=== PATIENT | male | born 1930 | race Caucasian/White ===

== ENCOUNTER 2017-04-13 20:09 | Inpatient (IN) | payer MEDICAID, MEDICARE, OTHER ==
[~2017-04-13] VITALS: Ht 180.3 cm; Wt 86.2 kg
[~2017-04-13 20:09] MED LIST: UNOBMED
[2017-04-13 20:25] LABS: BASOPHILS % (AUTO) 1.8 % (0.0-2.0); LYMPHOCYTES % (AUTO) 18.6 % (20.0-45.0); MEAN CORPUSCULAR HEMOGLOBIN 30.1 PG (27.0-31.0); MEAN CORPUSCULAR HGB CONC 31.8 G/DL (32.0-36.0); MEAN CORPUSCULAR VOLUME 95 FL (80-99); MEAN PLATELET VOLUME 5.8 FL (6.5-10.1); MONOCYTES % (AUTO) 8.1 % (1.0-10.0); NEUTROPHILS % (AUTO) 70.6 % (45.0-75.0); PLATELET COUNT 179 K/UL (150-450); RED BLOOD COUNT 4.65 M/UL (4.70-6.10); RED CELL DISTRIBUTION WIDTH 12.8 % (11.6-14.8); WHITE BLOOD COUNT 3.6 K/UL (4.8-10.8)
[2017-04-13 20:37] LABS: ANION GAP 21 mmol/L (5-15); CALCIUM 8.9 MG/DL (8.5-10.1); CARBON DIOXIDE 18 MMOL/L (21-32); CHLORIDE 100 MMOL/L (98-107); CREATININE 1.5 MG/DL (0.55-1.30); SODIUM 139 MMOL/L (136-145)
[2017-04-13 20:42] LABS: ALANINE AMINOTRANSFERASE 26 U/L (12-78); ALBUMIN/GLOBULIN RATIO 0.8 (1.0-2.7); ASPARTATE AMINO TRANSFERASE 34 U/L (15-37); TOTAL PROTEIN 8.3 G/DL (6.4-8.2)
[2017-04-13 21:04] LABS: APPEARANCE,URINE CLEAR; KETONES,URINE NEGATIVE (NEGATIVE); LEUKOCYTE ESTERASE ,URINE NEGATIVE (NEGATIVE); NITRITE,URINE NEGATIVE (NEGATIVE); PH,URINE 5 (4.5-8.0); PROTEIN,URINE 2+ (NEGATIVE); UROBILINOGEN,URINE NORMAL MG/DL (0.0-1.0)
[2017-04-13 21:19] LABS: AMORPHOUS SEDIMENT,UR FEW /LPF; BACTERIA,URINE OCCASIONAL /HPF; WBC,URINE 0-2 /HPF (0 - 0)
[2017-04-13] MEDS ORDERED: Phenytoin 1,000 MG in NS 275 ML IVPB ONE (21:30)
[2017-04-13] MEDS ORDERED: Phenytoin 250mg/5ml vial ONE (22:01)
[2017-04-13] MEDS ORDERED: LORazepam Inj 2mg/ml 1ml IV ONE (22:15)
[2017-04-13 23:19] VITALS: BP 107/61
[2017-04-14] VITALS (7 sets, daily range): BP systolic 118–142; BP diastolic 71–88
--- NOTE | 2017-04-14 00:31 | Emergency Room Report ---
History of Present Illness General Chief Complaint: Seizure Source: Patient, EMS Present Illness HPI Patient is 87-year-old male who presented after increased seizure activity. Patient reportedly had prior history of seizure disorder. He was given Versed 5 mg IV by EMS with resolution of his seizures. Patient was noted to have 5 seizures [id number] while at home. The patient had been reportedly taking seizure medications at home however this is unknown. History is limited by patient's mental status Allergies: Coded Allergies: No Known Allergies (Unverified , 04/13/17) Patient History Past Medical History: seizures Past Surgical History: unable to obtain Reviewed Nursing Documentation: PMH: Agreed, PSxH: Agreed Nursing Documentation-PMH Hx Seizures: Yes Review of Systems All Other Systems: limited - y mental status Physical Exam Vital Signs Date Time Temp Pulse Resp B/P (MAP) Pulse Ox O2 Delivery O2 Flow Rate FiO2 04/13/17 20:00 98.2 104 16 106/53 98 Non-Rebreather 15.0 Sp02 EP Interpretation: reviewed, normal General Appearance: moderate distress, lethargic Head: atraumatic ENT: normal ENT inspection, other - gag reflex present Neck: normal inspection, supple, no meningismus, no bony tend Respiratory: normal inspection, lungs clear, normal breath sounds, no respiratory distress, no retraction, no wheezing Cardiovascular #1: no edema, tachycardia Gastrointestinal: normal inspection, non tender, soft, no guarding, no hernia Genitourinary: no CVA tenderness Musculoskeletal: normal inspection, back normal, normal range of motion Neurologic: normal inspection, responsive, motor weakness - generalized Skin: normal inspection, normal color, no rash Medical Decision Making Diagnostic Impression: Primary Impression: Epileptic seizure, generalized Additional Impressions: Subtherapeutic phenytoin level Tachycardia CVA (cerebrovascular accident) DNR (do not resuscitate) ER Course Patient presented for seizure. Differential diagnosis included subtherapeutic anticonvulsant level, status epilepticus, CVA, cysticercosis, electrolyte abnormality, mass lesion, or intracranial hemorrhage.Because of complexity of patient's case laboratory testing and imaging studies were ordered. The patient started on IV fluids. Patient was noted to have subtherapeutic Dilantin level. The Dilantin was ordered however patient had a seizure prior to receiving his medication and he was given Ativan 2 mg IV. The patient had subsequent resolution of seizure and was started on Dilantin. CT the head read by radiology showed age-indeterminate CVA. Per the patient's prior paperwork he is DO NOT RESUSCITATE, DO NOT INTUBATE. The patient was discussed with Dr. Pacheco for Dr. Lr who covers Dr. Mayifeld's patients. Labs Test 04/13/17 20:05 04/13/17 20:45 White Blood Count 3.6 K/UL (4.8-10.8) Red Blood Count 4.65 M/UL (4.70-6.10) Hemoglobin 14.0 G/DL (14.2-18.0) Hematocrit 44.0 % (42.0-52.0) Mean Corpuscular Volume 95 FL (80-99) Mean Corpuscular Hemoglobin 30.1 PG (27.0-31.0) Mean Corpuscular Hemoglobin Concent 31.8 G/DL (32.0-36.0) Red Cell Distribution Width 12.8 % (11.6-14.8) Platelet Count 179 K/UL (150-450) Mean Platelet Volume 5.8 FL (6.5-10.1) Neutrophils (%) (Auto) 70.6 % (45.0-75.0) Lymphocytes (%) (Auto) 18.6 % (20.0-45.0) Monocytes (%) (Auto) 8.1 % (1.0-10.0) Eosinophils (%) (Auto) 1.0 % (0.0-3.0) Basophils (%) (Auto) 1.8 % (0.0-2.0) Sodium Level 139 MMOL/L (136-145) Potassium Level 4.0 MMOL/L (3.5-5.1) Chloride Level 100 MMOL/L (98-107) Carbon Dioxide Level 18 MMOL/L (21-32) Anion Gap 21 mmol/L (5-15) Blood Urea Nitrogen 21 mg/dL (7-18) Creatinine 1.5 MG/DL (0.55-1.30) Estimat Glomerular Filtration Rate mL/min (>60) Glucose Level 171 MG/DL (74-106) Calcium Level 8.9 MG/DL (8.5-10.1) Total Bilirubin 0.3 MG/DL (0.2-1.0) Aspartate Amino Transf (AST/SGOT) 34 U/L (15-37) Alanine Aminotransferase (ALT/SGPT) 26 U/L (12-78) Alkaline Phosphatase 76 U/L (46-116) Total Protein 8.3 G/DL (6.4-8.2) Albumin 3.8 G/DL (3.4-5.0) Globulin 4.5 g/dL Albumin/Globulin Ratio 0.8 (1.0-2.7) Phenytoin (Dilantin) Level < 0.4 ug/mL (10-20) Phenobarbital Level < 1.0 ug/mL (15-40) Urine Color Pale yellow Urine Appearance Clear Urine pH 5 (4.5-8.0) Urine Specific [place] 1.015 (1.005-1.035) Urine Protein 2+ (NEGATIVE) Urine Glucose (UA) Negative (NEGATIVE) Urine Ketones Negative (NEGATIVE) Urine Occult Blood 2+ (NEGATIVE) Urine Nitrite Negative (NEGATIVE) Urine Bilirubin Negative (NEGATIVE) Urine Urobilinogen Normal MG/DL (0.0-1.0) Urine Leukocyte Esterase Negative (NEGATIVE) Urine RBC 5-10 /HPF (0 - 0) Urine WBC 0-2 /HPF (0 - 0) Urine Squamous Epithelial Cells None /LPF (NONE/OCC) Urine Amorphous Sediment Few /LPF (NONE) Urine Bacteria Occasional /HPF (NONE) Urine Opiates Screen Negative (NEGATIVE) Urine Barbiturates Screen Negative (NEGATIVE) Phencyclidine (PCP) Screen Negative (NEGATIVE) Urine Amphetamines Screen Negative (NEGATIVE) Urine Benzodiazepines Screen Positive (NEGATIVE) Urine Cocaine Screen Negative (NEGATIVE) Urine Marijuana (THC) Screen Positive (NEGATIVE) Last Vital Signs Date Time Temp Pulse Resp B/P (MAP) Pulse Ox O2 Delivery O2 Flow Rate FiO2 04/13/17 23:19 98.2 16 107/61 100 Non-Rebreather 15.0 04/13/17 20:20 110 Status: unchanged Disposition: ADMITTED INPATIENT Condition: Serious Referrals: NOT CHOSEN SNEHA/,REFERRING (PCP) Kirill Sainz Apr 14, 2017 00:31
[2017-04-14] MEDS: D5 1/2NS 1,000 ML IV SCH ×2 (01:07→14:53)
[2017-04-14 07:27] LABS: BASOPHILS % (AUTO) 0.6 % (0.0-2.0); EOSINOPHILS % (AUTO) 0.3 % (0.0-3.0); LYMPHOCYTES % (AUTO) 12.2 % (20.0-45.0); MEAN CORPUSCULAR HEMOGLOBIN 30.6 PG (27.0-31.0); MEAN CORPUSCULAR HGB CONC 33.4 G/DL (32.0-36.0); MEAN CORPUSCULAR VOLUME 91 FL (80-99); MEAN PLATELET VOLUME 6.1 FL (6.5-10.1); NEUTROPHILS % (AUTO) 73.9 % (45.0-75.0); PLATELET COUNT 162 K/UL (150-450); RED BLOOD COUNT 4.26 M/UL (4.70-6.10); RED CELL DISTRIBUTION WIDTH 12.4 % (11.6-14.8); WHITE BLOOD COUNT 9.5 K/UL (4.8-10.8)
[2017-04-14 07:46] LABS: ANION GAP 7 mmol/L (5-15); CALCIUM 8.6 MG/DL (8.5-10.1); CARBON DIOXIDE 30 MMOL/L (21-32); CHLORIDE 101 MMOL/L (98-107); CREATININE 0.9 MG/DL (0.55-1.30); POTASSIUM 3.7 MMOL/L (3.5-5.1); SODIUM 137 MMOL/L (136-145)
[2017-04-14] MEDS ORDERED: Phenytoin 200 MG in NS 55 ML IVPB SCH (09:00)
--- NOTE | 2017-04-14 09:06 | Diagnostic Imaging Report ---
Indication: Altered mental status Technique: Continuous helical CT scanning of the head was performed utilizing automated exposure control without intravenous contrast material. Axial and coronal reconstructions were obtained. Comparison: None CT dose: Total DLP 1502 mGycm; CTDI vol 70.5 mGy Findings: There is no acute intracranial hemorrhage, mass effect or cortical edema. The ventricles, cisterns and sulci are prominent consistent with atrophy. Periventricular hypoattenuation is seen, a nonspecific finding. Questionable low attenuation in the left midbrain/ upper vito concerning for age-indeterminate infarct. Questionable low attenuation in the cerebellum is likely artifactual. There are chronic appearing infarcts in the right caudate nucleus and right basal ganglion. There is no calvarial fracture. Mastoid air cells are clear. There is trace thickening in the paranasal sinuses. Impression: No evidence of acute intracranial hemorrhage, mass effect or midline shift edema. Subtle hypodensity in the left midbrain and upper vito is indeterminate lacunar infarct. Hypodensity in the left cerebellum is likely artifactual. Correlate clinically. MRI may be obtained for more sensitive evaluation as clinically indicated. Atrophy and nonspecific periventricular hypoattenuation suggestive of chronic ischemic microvascular changes. Chronic appearing lacunar infarcts in the right caudate and basal ganglia. This corresponds with the preliminary report. The CT scanner at [facility] is accredited by the [employer] and the scans are performed using protocols designed to limit radiation exposure to as low as reasonably achievable to attain images of sufficient resolution adequate for diagnostic evaluation.
--- NOTE | 2017-04-14 11:25 | Cardiology Report ---
APPROVED REPORT EKG Measurement Heart [id number] MI [id number] Sinus tachycardia Nonspecific ST and T wave abnormality Abnormal ECG
[2017-04-14] MEDS ORDERED: LEVETIRACETAM500 M1 ORAL (12:23)
[2017-04-14] MEDS ORDERED: LEXAPRO20 MG ORAL (12:24)
[2017-04-14] MEDS ORDERED: WARFARIN SODIUM5 MG ORAL (12:27)
[2017-04-14] MEDS ORDERED: WARFARIN SODIUM1 MG ORAL (12:27)
[2017-04-14] MEDS ORDERED: QUETIAPINE FUMA50 MG ORAL (12:27)
[2017-04-14] MEDS ORDERED: TAMSULOSIN HCL0.4 MG ORAL (12:27)
[2017-04-14 14:22] LABS: PROTHROMBIN TIME 10.7 SEC (9.30-11.50)
--- NOTE | 2017-04-14 14:37 | Consultation ---
Consult Note Consult Note NEUROLOGY CONSULTATION: Full note dictated #[id number] 87 y/o, RH, CM with PH of depression, CVD with prior strokes, a seizure disorder, chronic anticoagulation with warfarin. He was hospitalized for breakthrough seizures inspite of being on Keppra 500 mg bid. ON EXAM: Aphasic Left >right paresis Globally diminished DTRs Extensor plantars bilaterally. CT with old right BG and bilateral frontal DWM pathology. IMPRESSION: Breakthrough seizures - etiology unknown. ? New CV event ? Intoxication with THC ? Subtherapeutic Keppra. REC: Increase Keppra to 750 mg q 12 H after giving 1 G IV now. MRI of brain without and with GRACY. EEG Observe Sarabjit Byrne M.D., M.S.P.H. SARABJIT BYRNE Apr 14, 2017 14:37
--- NOTE | 2017-04-14 14:38 | History and Physical ---
History of Present Illness General Date patient seen: Apr 14, 2017 Time patient seen: 14:38 Reason for Hospitalization: Seizure Present Illness HPI 87y/o male with pmh of CVA, dementia, depression, seizure d/o, BPH, DVT (on coumadin) who presents with seizures. History limited given pt confused. Per EMS , pt had abt 5 seizures yesterday. He was compliant w/ his seizure med per reports. No reports of f/c, n/v, d/c, chest pain, fSOB. ocal weakness/numbness. No recent travel or sick contacts. Pt was given Versed 5mg IV in field w/ resolution of seizures. In ED, utox positive for cannabis and benzo. Pt had another seizure in ED and was given ativan 2mg IV. Pt then given dilantin 1mg IV. Allergies: Coded Allergies: No Known Allergies (Unverified , 04/13/17) Medication History Scheduled Escitalopram Oxalate* (Lexapro*), 20 MG ORAL DAILY, (Reported) Levetiracetam (Levetiracetam), 500 MG ORAL BID, (Reported) Quetiapine Fumarate* (Quetiapine Fumarate*), 50 MG ORAL DAILY, (Reported) Tamsulosin Hcl (Tamsulosin Hcl*), 0.4 MG ORAL BID, (Reported) Warfarin Sod* (Warfarin Sod*), 1 MG ORAL DAILY, (Reported) Warfarin Sod* (Warfarin Sod*), 5 MG ORAL DAILY, (Reported) Miscellaneous Medications Unable to Obtain Medications (Unable To Obtain Meds), (Reported) Patient History History Provided By: Patient, Family Member, Friend, Medical Record Healthcare decision maker Resuscitation status DNR/DNI Advanced Directive on File No Past Medical/Surgical History Past Medical/Surgical History: (1) Seizure disorder (2) H/o DVT (3) Depression (4) Dementia (5) BPH (benign prostatic hyperplasia) (6) CVA (cerebrovascular accident) Family History Family History: Patient reports no known family medical history. Social History Social History: (1) lives at home with family Review of Systems ROS Narrative Unable to obtain as pt is confused Physical Exam Physical Exam Narrative General: alert, cooperative, no distress, appears stated age, confused Head: normocephalic, without obvious abnormality, atraumatic Eyes: conjunctivae/corneas clear. PERRL, EOM's intact Throat: lips, mucosa, and tongue normal. MMM Neck: supple, symmetrical, trachea midline, and no JVD Lungs: clear to auscultation bilaterally Heart: regular rate and rhythm, S1, S2 normal, no murmur, click, rub or gallop Abdomen: soft, non-tender, non-distended, bowel sounds normal; no masses or organomegaly Extremities: extremities normal, atraumatic, no cyanosis or edema Pulses: 2+ and symmetric Skin: skin color, texture, turgor normal; no rashes or lesions Neurologic: +dysarthria and aphasia, L>R paresis w/ LE worse than UE Last 24 Hour Vital Signs Date Time Temp Pulse Resp B/P (MAP) Pulse Ox O2 Delivery O2 Flow Rate FiO2 04/14/17 12:00 98.1 100 18 118/71 Nasal Cannula 3.0 04/14/17 12:00 107 04/14/17 08:00 109 04/14/17 08:00 97.5 100 19 128/88 Room Air 04/14/17 04:05 99 Nasal Cannula 3.0 04/14/17 04:00 98.4 120 22 142/76 99 Nasal Cannula 04/14/17 03:38 125 04/14/17 01:00 98.0 110 22 133/71 100 Non-Rebreather 5.0 04/14/17 00:30 98.1 108 18 134/81 99 Room Air 15.0 04/14/17 00:30 108 18 134/81 99 Simple Mask 6.0 04/13/17 23:19 98.2 16 107/61 100 Non-Rebreather 15.0 04/13/17 20:20 110 18 Non-Rebreather 15.0 04/13/17 20:00 98.2 104 16 106/53 98 Non-Rebreather 15.0 Laboratory Tests Test 04/13/17 20:05 04/13/17 20:45 04/14/17 06:00 04/14/17 13:52 White Blood Count 3.6 K/UL (4.8-10.8) L 9.5 K/UL (4.8-10.8) # Red Blood Count 4.65 M/UL (4.70-6.10) L 4.26 M/UL (4.70-6.10) L Hemoglobin 14.0 G/DL (14.2-18.0) L 13.0 G/DL (14.2-18.0) L Hematocrit 44.0 % (42.0-52.0) 39.0 % (42.0-52.0) L Mean Corpuscular Volume 95 FL (80-99) 91 FL (80-99) Mean Corpuscular Hemoglobin 30.1 PG (27.0-31.0) 30.6 PG (27.0-31.0) Mean Corpuscular Hemoglobin Concent 31.8 G/DL (32.0-36.0) L 33.4 G/DL (32.0-36.0) Red Cell Distribution Width 12.8 % (11.6-14.8) 12.4 % (11.6-14.8) Platelet Count 179 K/UL (150-450) 162 K/UL (150-450) Mean Platelet Volume 5.8 FL (6.5-10.1) L 6.1 FL (6.5-10.1) L Neutrophils (%) (Auto) 70.6 % (45.0-75.0) 73.9 % (45.0-75.0) Lymphocytes (%) (Auto) 18.6 % (20.0-45.0) L 12.2 % (20.0-45.0) L Monocytes (%) (Auto) 8.1 % (1.0-10.0) 13.0 % (1.0-10.0) H Eosinophils (%) (Auto) 1.0 % (0.0-3.0) 0.3 % (0.0-3.0) Basophils (%) (Auto) 1.8 % (0.0-2.0) 0.6 % (0.0-2.0) Sodium Level 139 MMOL/L (136-145) 137 MMOL/L (136-145) Potassium Level 4.0 MMOL/L (3.5-5.1) 3.7 MMOL/L (3.5-5.1) Chloride Level 100 MMOL/L (98-107) 101 MMOL/L (98-107) Carbon Dioxide Level 18 MMOL/L (21-32) L 30 MMOL/L (21-32) Anion Gap 21 mmol/L (5-15) H 7 mmol/L (5-15) Blood Urea Nitrogen 21 mg/dL (7-18) H 15 mg/dL (7-18) Creatinine 1.5 MG/DL (0.55-1.30) H 0.9 MG/DL (0.55-1.30) Estimat Glomerular Filtration Rate mL/min (>60) mL/min (>60) Glucose Level 171 MG/DL (74-106) H 120 MG/DL (74-106) H Calcium Level 8.9 MG/DL (8.5-10.1) 8.6 MG/DL (8.5-10.1) Total Bilirubin 0.3 MG/DL (0.2-1.0) Aspartate Amino Transf (AST/SGOT) 34 U/L (15-37) Alanine Aminotransferase (ALT/SGPT) 26 U/L (12-78) Alkaline Phosphatase 76 U/L (46-116) Total Protein 8.3 G/DL (6.4-8.2) H Albumin 3.8 G/DL (3.4-5.0) Globulin 4.5 g/dL Albumin/Globulin Ratio 0.8 (1.0-2.7) L Phenytoin (Dilantin) Level < 0.4 ug/mL (10-20) L Phenobarbital Level < 1.0 ug/mL (15-40) L Urine Color Pale yellow Urine Appearance Clear Urine pH 5 (4.5-8.0) Urine Specific [place] 1.015 (1.005-1.035) Urine Protein 2+ (NEGATIVE) H Urine Glucose (UA) Negative (NEGATIVE) Urine Ketones Negative (NEGATIVE) Urine Occult Blood 2+ (NEGATIVE) H Urine Nitrite Negative (NEGATIVE) Urine Bilirubin Negative (NEGATIVE) Urine Urobilinogen Normal MG/DL (0.0-1.0) Urine Leukocyte Esterase Negative (NEGATIVE) Urine RBC 5-10 /HPF (0 - 0) H Urine WBC 0-2 /HPF (0 - 0) Urine Squamous Epithelial Cells None /LPF (NONE/OCC) Urine Amorphous Sediment Few /LPF (NONE) H Urine Bacteria Occasional /HPF (NONE) Urine Opiates Screen Negative (NEGATIVE) Urine Barbiturates Screen Negative (NEGATIVE) Phencyclidine (PCP) Screen Negative (NEGATIVE) Urine Amphetamines Screen Negative (NEGATIVE) Urine Benzodiazepines Screen Positive (NEGATIVE) H Urine Cocaine Screen Negative (NEGATIVE) Urine Marijuana (THC) Screen Positive (NEGATIVE) H Prothrombin Time 10.7 SEC (9.30-11.50) Prothromb Time International Ratio 1.0 (0.9-1.1) Height (Feet): 5 Height (Inches): 11.00 Weight (Pounds): 190 Medications Current Medications Medications (Trade) Dose Ordered Sig/Jone Route PRN Reason Start Time Stop Time Status Last Admin Dose Admin Dextrose/Sodium Chloride 1,000 ml @ 75 mls/hr [id number] IV 04/14/17 01:00 05/14/17 00:59 04/14/17 01:07 Escitalopram Oxalate (Lexapro) 20 mg DAILY ORAL 04/14/17 16:00 05/14/17 15:59 Levetiracetam (Keppra) 500 mg BID ORAL 04/14/17 18:00 05/14/17 17:59 Quetiapine Fumarate (SEROquel) 50 mg DAILY ORAL 04/14/17 14:00 05/14/17 13:59 Tamsulosin HCl (Flomax) 0.4 mg BID ORAL 04/14/17 18:00 05/14/17 17:59 Warfarin Sodium (Coumadin per pharmacy) 1 ea DAILY PRN MISC Per rx protocol 04/14/17 14:00 05/14/17 13:59 Warfarin Sodium (Coumadin) 6 mg COUMADIN ORAL 04/15/17 17:00 04/20/17 16:59 Warfarin Sodium (Coumadin) 8 mg COUMADIN ONCE PO 04/14/17 17:00 04/14/17 17:01 Assessment/Plan Problem List: (1) Epileptic seizure, generalized ICD Codes: G40.309 - Generalized idiopathic epilepsy and epileptic syndromes, not intractable, without status epilepticus SNOMED: 66570726 (2) Seizure disorder ICD Codes: G40.909 - Epilepsy, unspecified, not intractable, without status epilepticus SNOMED: 338793589 (3) CVA (cerebrovascular accident) ICD Codes: I63.9 - Cerebral infarction, unspecified SNOMED: 010735042 (4) Dementia ICD Codes: F03.90 - Unspecified dementia without behavioral disturbance SNOMED: 90094194 (5) Depression ICD Codes: F32.9 - Major depressive disorder, single episode, unspecified SNOMED: 32003536 (6) BPH (benign prostatic hyperplasia) ICD Codes: N40.0 - Benign prostatic hyperplasia without lower urinary tract symptoms SNOMED: 088892567 (7) H/o DVT Assessment & Plan: on coumadin Status: stable Assessment/Plan Pt with breakthrough seizure despite reportedly being compliant with keppra Admit inpt Neurology consulted CT brain reviewed and shows old R basal ganglia infarct and b/l frontal deep white matter disease but no acute pathology Check MRI brain Check EEG Keppra 1g load now, then incr to 750mg BID Utox positive for benzo and cannabis Check BLE venous duplex Cont coumadin per pharmacy, INR goal 2-3 Cont other home meds Pain control, bowel regimen Supportive care DVT Prophylaxis: SCD, coumadin Code Status: Full Hospital Classification Declaration: Based on this initial evaluation, and depending on the patient's clinical course, I anticipate that this patient will require hospitalization for 2-3 days for seizures and close respiratory/ hemodynamic monitoring. Disposition: Once the patient is stable to leave the hospital, I anticipate the patient will likely be discharged to the following environment: home with HH vs SNF I spent 71 minutes on this patient's case, and 39 minutes were dedicated to counseling and/or care coordination. Discussed with patient/family, nursing staff, SW/CM, neurology regarding clinical status, treatment course, and disposition planning. D/w neurology re plan to increase keppra Time of note may not reflect time of encounter. Maryan Mcqueen M.D. Apr 14, 2017 14:38
[2017-04-14] MEDS ORDERED: levETIRAcetam 1,000mg/NS100ml 100 ML IVPB ONE (15:30)
[2017-04-14] MEDS ORDERED: Warfarin Sodium 4mg PO ONE (17:00)
[2017-04-14] MEDS ORDERED: LORazepam Inj 2mg/ml 1ml IV ONE (17:30)
[2017-04-14] MEDS: Tamsulosin 0.4mg cap ORAL SCH (18:00)
[2017-04-14] MEDS ORDERED: LORazepam Inj 2mg/ml 1ml IV SCH (18:00)
[2017-04-14] MEDS ORDERED: levETIRAcetam 500mg/NS100ml 100 ML IVPB SCH (21:30)
[2017-04-15] VITALS: BP 130/79
--- NOTE | 2017-04-15 | Consultation ---
DATE OF CONSULTATION: 04/14/2017 NEUROLOGY CONSULTATION HISTORY: Mr. Abraham Carrillo is an 87-year-old, right-handed, gentleman, who does have a past history of depression, cerebrovascular disease with prior strokes, seizure disorder - the exact details of which are unknown to us, and chronic anticoagulation with warfarin for deep venous thrombosis. He was apparently hospitalized on 04/13/2017 for breakthrough seizures in spite of being on Keppra 500 mg twice a day. On being evaluated in the emergency room, his toxicology screen was positive for cannabinols and benzodiazepines. At this point in time, the patient is quite aphasic and is unable to give me any further history. As per one of his friends who was with him, he is normally able to express himself well, having a normal conversation and he is able to walk. PAST MEDICAL HISTORY: Significant for depression, cerebrovascular disease with prior stroke, seizure disorder, and anticoagulation with warfarin for deep venous thrombosis. FAMILY HISTORY: Unavailable. PERSONAL HISTORY: Unavailable. MEDICATIONS: Present medications include Keppra 500 mg twice a day, Flomax 0.4 mg twice a day, Lexapro 20 mg daily, warfarin, and Seroquel 50 mg daily. He was given Dilantin 1 G intravenously in the emergency room. PHYSICAL EXAMINATION: GENERAL: He is a well-developed, well-nourished gentleman, lying in bed, in no acute distress. VITAL SIGNS: Pulse 100 per minute, blood pressure 118/71 mmHg, respirations 18 per minute, and temperature 98.1 degrees Fahrenheit. HEAD: Normocephalic and atraumatic. EENT: Examination benign. NECK: No neck rigidity was observed. NEUROLOGICAL EXAMINATION: MENTAL STATUS EXAMINATION: He was awake and alert. He was aphasic even in Farsi and thus could not cooperate for a mental status examination. SPEECH: He had mild dysarthria. LANGUAGE: He did say some words, but they did not make any sense even in Farsi, as per a friend, who speaks Farsi fluently, who was with him. CRANIAL NERVE EXAMINATION: II: He was unable to count fingers, but he did blink to threat in all lomeli. III, IV & : The external ocular movements were full and the pupils 3 mm in diameter, equal, round, regular, and reactive to light. V: He had normal facial sensations and the temporales, masseters, and VII: He had left greater than right VII central facial paresis. VIII: He was able to hear and had no nystagmus. IX: The palate moved symmetrically on phonation. X: He had no hoarseness of voice. XI: The sternocleidomastoids and trapezii function normally. XII: The tongue was in the midline without any fasciculations or atrophy. MOTOR SYSTEM: The tone was increased in all four extremities with gegenhalten. Examination of muscle mass revealed some generalized muscle wasting. Examination of power was exceedingly difficult to perform because of varying degrees of cooperation. However, he did have a left greater than right paresis involving the lower extremities more than the upper extremities. SENSORY EXAMINATION: He responded appropriately to deep pain. He was unable to cooperate for other sensory modalities. REFLEXES: Trace+ and bilaterally symmetrical at the biceps, triceps, brachioradialis, and knees and 0 at both ankles. The plantar responses were extensor bilaterally. COORDINATION, STANCE & GAIT: Could not be tested. DIAGNOSTIC IMPRESSION: 1. Mr. 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 He was hospitalized on 04/13/2017 for breakthrough seizures in spite of being on Keppra 500 mg twice a day. 2. On neurological examination, at this time, he is significantly aphasic making further mental status testing quite impossible. He also has a dysarthria, left greater than right VII central facial paresis, left greater than right lower extremity more than upper extremity quadriparesis, globally diminished deep tendon reflexes, and extensor plantar responses. 3. The CT scan of the brain without contrast reveals old right basal ganglion infarcts and in addition, bilateral frontal deep white matter disease, but no definite acute pathology. 4. Laboratory data revealed a relatively normal chemistry panel, a hemoglobin of 13.0 and an INR of 1.0. The chemistry panel revealed an elevated blood sugar at 120 fasting. The toxicology screen, was positive for benzodiazepines and cannabinols, and urinalysis revealed 5-10 red blood cells, 0-2 white blood cells, and negative leukocyte esterase. 5. The patient's history, neurological examination, laboratory data, and imaging studies are most compatible with breakthrough seizures in this patient, who does have an underlying history of cerebrovascular disease and seizures. It is unclear why he had these breakthrough seizures. The possibilities could include a new cerebrovascular event, intoxication with cannabinoids, or a subtherapeutic Keppra level. RECOMMENDATIONS: 1. Agree with management thus far. 2. His dose of Keppra will be increased to 750 mg q.12 h. after giving him an extra 1 G of Keppra intravenously now. 3. An MRI scan of the brain without and with gadolinium should be performed to evaluate the patient for acute intracranial pathology. 4. An EEG will be ordered to evaluate the patient for the type of seizure disorder. 5. The patient will be observed closely and depending on how he fares over the next day or so, further recommendations will be given. Thank you for entrusting me with the care of Mr. Carrillo. I shall follow him with you. Michael Byrne M.D., M.S.P.H. DR: Aundrea JOB#: [id number]
[2017-04-15 04:00] VITALS: BP 145/82
[2017-04-15] MEDS: D5 1/2NS 1,000 ML IV SCH ×2 (04:00→17:13)
[2017-04-15 08:00] VITALS: BP 137/73
[2017-04-15 08:01] LABS: INR 1.1 (0.9-1.1)
[2017-04-15] MEDS: Tamsulosin 0.4mg cap ORAL SCH ×2 (08:26→18:10)
[2017-04-15] MEDS: levETIRAcetam 750 MG in NS 110 ML IV SCH ×2 (09:42→21:45)
[2017-04-15 11:04] LABS: BASOPHILS % (AUTO) 1.1 % (0.0-2.0); EOSINOPHILS % (AUTO) 0.3 % (0.0-3.0); LYMPHOCYTES % (AUTO) 15.2 % (20.0-45.0); MEAN CORPUSCULAR HGB CONC 33.7 G/DL (32.0-36.0); MEAN CORPUSCULAR VOLUME 92 FL (80-99); MEAN PLATELET VOLUME 6.1 FL (6.5-10.1); MONOCYTES % (AUTO) 14.3 % (1.0-10.0); NEUTROPHILS % (AUTO) 69.2 % (45.0-75.0); PLATELET COUNT 147 K/UL (150-450); RED BLOOD COUNT 4.51 M/UL (4.70-6.10); RED CELL DISTRIBUTION WIDTH 12.6 % (11.6-14.8); WHITE BLOOD COUNT 8.6 K/UL (4.8-10.8)
--- NOTE | 2017-04-15 11:23 | Diagnostic Imaging Report ---
Indication: Altered mental status Technique: MRI the brain performed without with contrast utilizing T1 sagittal, T2 axial, T1 FLAIR axial, T2 FLAIR axial, T2*GRE and diffusion axial images without gadolinium. Axial and coronal postcontrast. Comparison: CT of the head 04/13/17 Findings: Evaluation is limited by motion. There is no abnormal diffusion restriction. The sulci, ventricles and cisterns are prominent consistent with atrophy. Periventricular and supratentorial white matter T2 signal are seen without mass effect. There is an old infarct of the right basal ganglia. The sella and parasellar regions are unremarkable. Expected signal flow voids are seen of the vessels of the skull base. Visualized mastoid air cells and paranasal sinuses are unremarkable. No focal bony calvarium or soft tissue lesions are seen. Impression: Evaluation limited by significant motion. No obvious acute intracranial abnormality or abnormal postcontrast imaging. Atrophy and nonspecific periventricular and subcortical T2 signal suggestive of chronic ischemic microvascular changes. Old infarct of the right basal ganglia.
[2017-04-15 11:27] LABS: ANION GAP 7 mmol/L (5-15); CALCIUM 8.8 MG/DL (8.5-10.1); CARBON DIOXIDE 27 MMOL/L (21-32); CHLORIDE 105 MMOL/L (98-107); CREATININE 0.7 MG/DL (0.55-1.30); MAGNESIUM 2.1 MG/DL (1.8-2.4); PHOSPHORUS 2.9 MG/DL (2.5-4.9); POTASSIUM 3.7 MMOL/L (3.5-5.1); SODIUM 139 MMOL/L (136-145); THYROID STIMULATING HORMONE 0.392 uiU/mL (0.358-3.740)
[2017-04-15 12:00] VITALS: BP 124/68
[2017-04-15 13:11] LABS: FOLIC ACID 19.3 NG/ML (8.6-58.9)
--- NOTE | 2017-04-15 14:36 | Neurology Progress Note ---
Interim History Interim History Interim History Mr. Carrillo says he feels "well" in [facility]. He however cannot communicate further even in [facility]. He is irritable. He has been seizure free. He continues to be cognitively impoverished. He continues to be generally weak. Review of Systems Neuro Review of Systems Unable to obtain. Objective Physical Exam Last Vital Signs Date Time Temp Pulse Resp B/P (MAP) Pulse Ox O2 Delivery O2 Flow Rate FiO2 04/15/17 12:00 121 04/15/17 12:00 98.2 19 124/68 95 04/15/17 04:00 Nasal Cannula 04/14/17 16:00 3.0 Laboratory Tests Test 04/15/17 06:00 04/15/17 10:30 Prothrombin Time 11.0 SEC (9.30-11.50) Prothromb Time International Ratio 1.1 (0.9-1.1) White Blood Count 8.6 K/UL (4.8-10.8) Red Blood Count 4.51 M/UL (4.70-6.10) L Hemoglobin 14.0 G/DL (14.2-18.0) L Hematocrit 41.6 % (42.0-52.0) L Mean Corpuscular Volume 92 FL (80-99) Mean Corpuscular Hemoglobin 31.0 PG (27.0-31.0) Mean Corpuscular Hemoglobin Concent 33.7 G/DL (32.0-36.0) Red Cell Distribution Width 12.6 % (11.6-14.8) Platelet Count 147 K/UL (150-450) L Mean Platelet Volume 6.1 FL (6.5-10.1) L Neutrophils (%) (Auto) 69.2 % (45.0-75.0) Lymphocytes (%) (Auto) 15.2 % (20.0-45.0) L Monocytes (%) (Auto) 14.3 % (1.0-10.0) H Eosinophils (%) (Auto) 0.3 % (0.0-3.0) Basophils (%) (Auto) 1.1 % (0.0-2.0) Sodium Level 139 MMOL/L (136-145) Potassium Level 3.7 MMOL/L (3.5-5.1) Chloride Level 105 MMOL/L (98-107) Carbon Dioxide Level 27 MMOL/L (21-32) Anion Gap 7 mmol/L (5-15) Blood Urea Nitrogen 13 mg/dL (7-18) Creatinine 0.7 MG/DL (0.55-1.30) Estimat Glomerular Filtration Rate mL/min (>60) Glucose Level 105 MG/DL (74-106) Calcium Level 8.8 MG/DL (8.5-10.1) Phosphorus Level 2.9 MG/DL (2.5-4.9) Magnesium Level 2.1 MG/DL (1.8-2.4) Vitamin B12 Level 1038 PG/ML (193-986) H Vitamin D 25-Hydroxy Pending 25-Hydroxy Vitamin D2 Pending 25-Hydroxy Vitamin D3 Pending Folate 19.3 NG/ML (8.6-58.9) Thyroid Stimulating Hormone (TSH) 0.392 uiU/mL (0.358-3.740) Neurologic Exam Objective PHYSICAL EXAMINATION: GENERAL: He is a well-developed, well-nourished gentleman, lying in bed, in no acute distress. HEAD: Normocephalic and atraumatic. EENT: Examination benign. NECK: No neck rigidity was observed. NEUROLOGICAL EXAMINATION: MENTAL STATUS EXAMINATION: He was awake and alert. He was aphasic even in [place] and thus could not cooperate for a mental status examination. SPEECH: He had mild dysarthria. LANGUAGE: The only word he said that made sense was "well" in [place] when asked how he felt. He did say some other words, but they did not make any sense. CRANIAL NERVE EXAMINATION: II: He was unable to count fingers, but he did blink to threat in all lomeli. III, IV & : The external ocular movements were full and the pupils 3 mm in diameter, equal, round, regular, and reactive to light. V: He had normal facial sensations and the temporales, masseters, and pterygoids functioned normally. VII: He had left greater than right VII central facial paresis. VIII: He was able to hear and had no nystagmus. IX: The palate moved symmetrically on phonation. X: He had no hoarseness of voice. XI: The sternocleidomastoids and trapezii functioned normally. XII: The tongue was in the midline without any fasciculations or atrophy. MOTOR SYSTEM: The tone was increased in all four extremities with gegenhalten. Examination of muscle mass revealed some generalized muscle wasting. Examination of power was exceedingly difficult to perform because of varying degrees of cooperation. However, he did have a left greater than right paresis involving the lower extremities more than the upper extremities. SENSORY EXAMINATION: He responded appropriately to deep pain. He was unable to cooperate for other sensory modalities. REFLEXES: Trace+ and bilaterally symmetrical at the biceps, triceps, brachioradialis, and knees and 0 at both ankles. The plantar response was extensor on the left and flexor on the right. COORDINATION, STANCE & GAIT: Could not be tested. Impression/Recommendations Diagnostic Impression 1. Mr. 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 He was hospitalized on 04/13/2017 for breakthrough seizures in spite of being on Keppra 500 mg twice a day. 2. He has been seizure free. However he continues to be cognitively impoverished and motorically challenged. 3. On neurological examination, at this time, he is significantly aphasic making further mental status testing quite impossible. He also has a dysarthria , left greater than right VII central facial paresis, left greater than right lower extremity more than upper extremity quadriparesis, globally diminished deep tendon reflexes, and an extensor plantar response on the left. 4. The CT scan of the brain without contrast reveals old right basal ganglion infarcts and in addition, bilateral frontal deep white matter disease, but no definite acute pathology. 5. The MRI of the brain done on 04/14/17 revealed an old right basal ganglion infarct, bilateral frontal deep white matter disease, significant atrophy, but no definite acute pathology. 6. The EEG done on 04/14/17 revealed a moderate encephalopathy and bilateral frontal dysfunction but no inter-ictal or ictal phenomena. 7. Laboratory data revealed a relatively normal chemistry panel, a hemoglobin of 13.0 and an INR of 1.0. The chemistry panel revealed an elevated blood sugar at 120 fasting. The toxicology screen, was positive for benzodiazepines and cannabinols, and urinalysis revealed 5-10 red blood cells, 0-2 white blood cells, and negative leukocyte esterase. 8. The patient's history, neurological examination, laboratory data, EEG and imaging studies are most compatible with breakthrough seizures in this patient, who does have an underlying history of cerebrovascular disease and seizures. The breakthrough seizures could be due to intoxication with cannabinoids, or a subtherapeutic Keppra level. Recommendations 1. Continue present management. 2. Continue Keppra 750 mg q.12 h by whatever route is convenient. 3. Observe closely. Sarabjit Byrne M.D., M.S.P.Jayesh. SARABJIT BYRNE Apr 15, 2017 14:36
[2017-04-15 16:00] VITALS: BP 133/74
[2017-04-15] MEDS ORDERED: Warfarin Sodium 3mg ORAL SCH (17:00)
--- NOTE | 2017-04-15 18:39 | General Progress Note ---
Assessment/Plan Problem List: (1) Seizure ICD Codes: R56.9 - Unspecified convulsions SNOMED: 71356440 (2) Tachycardia ICD Codes: R00.0 - Tachycardia, unspecified SNOMED: 9581298 (3) CVA (cerebrovascular accident) ICD Codes: I63.9 - Cerebral infarction, unspecified SNOMED: 397739940 (4) Dementia ICD Codes: F03.90 - Unspecified dementia without behavioral disturbance SNOMED: 16968698 (5) Depression ICD Codes: F32.9 - Major depressive disorder, single episode, unspecified SNOMED: 36977162 (6) BPH (benign prostatic hyperplasia) ICD Codes: N40.0 - Benign prostatic hyperplasia without lower urinary tract symptoms SNOMED: 615252360 (7) H/o DVT Status: stable Assessment/Plan - appreciate neurology recs & mgt - c/w keppra 750mg BID - ativan prn - neuro checks - trend chem, cbc - c/w other mgt as outlined above - supportive care I spent 38 min on this case and 22 min on counseling and care coordination including discussion w/ family & RN at bedside and Neurology financial analysis consultant. time of this note may not reflect the time of the encounter. Subjective Date patient seen: Apr 15, 2017 ROS Limited/Unobtainable: Yes Allergies: Coded Allergies: No Known Allergies (Unverified , 04/13/17) Subjective No acute events Continues to be confused MRI and EEG unremarkable Tolerating medications Afebrile and HDS No clear evidence of other etiology of encephalopathy, appears to be c/w post seizure state Objective Last 24 Hour Vital Signs Date Time Temp Pulse Resp B/P (MAP) Pulse Ox O2 Delivery O2 Flow Rate FiO2 04/15/17 16:00 99.7 121 18 133/74 93 04/15/17 16:00 109 04/15/17 12:00 121 04/15/17 12:00 98.2 118 19 124/68 95 04/15/17 08:00 97.7 108 18 137/73 94 04/15/17 08:00 114 04/15/17 04:00 98.0 115 20 145/82 93 Nasal Cannula 04/15/17 04:00 99 04/15/17 00:00 114 04/15/17 00:00 98.2 112 20 130/79 95 Nasal Cannula 04/14/17 20:00 98.4 106 21 119/76 96 Nasal Cannula 04/14/17 20:00 117 Intake and Output 04/15/17 04/16/17 19:00 07:00 Intake Total 817.5 ml Balance 817.5 ml Intake Oral 100 ml IV Total 717.5 ml # Voids 4 Laboratory Tests 04/15/17 06:00: Prothrombin Time 11.0, Prothromb Time International Ratio 1.1 04/15/17 10:30: White Blood Count 8.6, Red Blood Count 4.51L, Hemoglobin 14.0L, Hematocrit 41.6L , Mean Corpuscular Volume 92, Mean Corpuscular Hemoglobin 31.0, Mean Corpuscular Hemoglobin Concent 33.7, Red Cell Distribution Width 12.6, Platelet Count 147L, Mean Platelet Volume 6.1L, Neutrophils (%) (Auto) 69.2, Lymphocytes (%) (Auto) 15.2L, Monocytes (%) (Auto) 14.3H, Eosinophils (%) (Auto) 0.3, Basophils (%) (Auto) 1.1, Sodium Level 139, Potassium Level 3.7, Chloride Level 105, Carbon Dioxide Level 27, Anion Gap 7, Blood Urea Nitrogen 13, Creatinine 0.7, Estimat Glomerular Filtration Rate , Glucose Level 105, Calcium Level 8.8, Phosphorus Level 2.9, Magnesium Level 2.1, Vitamin B12 Level 1038H, Vitamin D 25 -Hydroxy [Pending], 25-Hydroxy Vitamin D2 [Pending], 25-Hydroxy Vitamin D3 [ Pending], Folate 19.3, Thyroid Stimulating Hormone (TSH) 0.392 Height (Feet): 5 Height (Inches): 11.00 Weight (Pounds): 190 Objective General: alert, cooperative, no distress, appears stated age, confused Head: normocephalic, without obvious abnormality, atraumatic Eyes: conjunctivae/corneas clear. PERRL, EOM's intact Throat: lips, mucosa, and tongue normal. MMM Neck: supple, symmetrical, trachea midline, and no JVD Lungs: clear to auscultation bilaterally Heart: regular rate and rhythm, S1, S2 normal, no murmur, click, rub or gallop Abdomen: soft, non-tender, non-distended, bowel sounds normal; no masses or organomegaly Extremities: extremities normal, atraumatic, no cyanosis or edema Pulses: 2+ and symmetric Skin: skin color, texture, turgor normal; no rashes or lesions Neurologic: +dysarthria and aphasia, L>R paresis w/ LE worse than UE Omero De Santiago MD Apr 15, 2017 18:39
[2017-04-15 20:00] VITALS: BP 137/75
--- NOTE | 2017-04-15 20:30 | Electroencephalogram ---
DATE OF PROCEDURE: 04/14/2017 REQUESTING PHYSICIANS: Maryan Mcqueen M.D. & Ina Vega M.D. READING PHYSICIAN: Michael Byrne M.D. HISTORY: This EEG was performed on an 87-year-old gentleman with a history of multiple medical problems including a seizure disorder. The patient was hospitalized for a flurry of seizures at home. The purpose of this EEG was to evaluate the patient for ongoing ictal or interictal phenomena and to determine the degree and type of cerebral dysfunction. TECHNICAL NOTE: This EEG was performed on a [employer] with electrodes placed on the scalp according to the International 10-20 System. [id number] and [id number] montages were used. The EEG was technically satisfactory and was performed in the awake and drowsy states. OBSERVATIONS: In the best awake state, the background activity consisted of 5-6 Hz theta with bilateral frontal polymorphic delta activity. Drowsiness was characterized by slowing of the background in the 4 Hz theta range with intermixed delta frequencies and continued bilateral frontal polymorphic delta activity. No definite epileptiform discharges were seen. IMPRESSION: This is an abnormal EEG characterized by: 1. Slowing of the background in the 5-6 Hz theta range in the best awake state. 2. The presence of bilateral frontal polymorphic delta activity seen during both wakefulness and drowsiness. COMMENT: The study is consistent with: 1. An encephalopathy of a moderate degree. 2. Bilateral frontal dysfunction. Please note that no interictal discharges were seen during the EEG; however, the lack of interictal discharges does not rule out a seizure disorder. Michael Byrne M.D., M.S.P.H. DR: Aundrea JOB#: [id number] [facility]
[2017-04-15] MEDS ORDERED: levETIRAcetam 500mg vial IV ONE (21:34)
[2017-04-16] VITALS: BP 153/85
[2017-04-16] MEDS: LORazepam Inj 2mg/ml 1ml IV PRN ×2 (02:39→10:27)
[2017-04-16 04:00] VITALS: BP 126/75
[2017-04-16] MEDS: D5 1/2NS 1,000 ML IV SCH ×2 (06:20→17:16)
[2017-04-16 07:44] LABS: PROTHROMBIN TIME 10.3 SEC (9.30-11.50)
[2017-04-16 08:00] VITALS: BP 134/83
[2017-04-16] MEDS: Tamsulosin 0.4mg cap ORAL SCH ×2 (09:49→17:19)
[2017-04-16] MEDS: levETIRAcetam 750 MG in NS 110 ML IV SCH ×2 (09:50→21:01)
[2017-04-16 12:00] VITALS: BP 110/54
--- NOTE | 2017-04-16 12:55 | Neurology Progress Note ---
Interim History Interim History Interim History Mr. Carrillo says he feels "well" in [facility]. He is more sleepy today. He cannot communicate even in [facility]. He has been seizure free. He continues to be cognitively impoverished. He continues to be generally weak. Review of Systems Neuro Review of Systems Unable to obtain. Objective Physical Exam Last Vital Signs Date Time Temp Pulse Resp B/P (MAP) Pulse Ox O2 Delivery O2 Flow Rate FiO2 04/16/17 12:00 97.9 106 19 110/54 95 04/16/17 04:00 Room Air 04/14/17 16:00 3.0 Laboratory Tests Test 04/16/17 05:52 Prothrombin Time 10.3 SEC (9.30-11.50) Prothromb Time International Ratio 1.0 (0.9-1.1) Neurologic Exam Objective PHYSICAL EXAMINATION: GENERAL: He is a well-developed, well-nourished gentleman, lying in bed, in no acute distress. HEAD: Normocephalic and atraumatic. EENT: Examination benign. NECK: No neck rigidity was observed. NEUROLOGICAL EXAMINATION: MENTAL STATUS EXAMINATION: He was drowsy but could be aroused. He was aphasic and drowsy, and thus could not cooperate for further mental status examination. SPEECH: He had mild dysarthria. LANGUAGE: The only word he said that made sense was "well" in [facility] when asked how he felt. CRANIAL NERVE EXAMINATION: II: He was unable to count fingers, but he did blink to threat in all lomeli. III, IV & : The external ocular movements were full and the pupils 3 mm in diameter, equal, round, regular, and reactive to light. V: He had normal facial sensations and the temporales, masseters, and pterygoids functioned normally. VII: He had left greater than right VII central facial paresis. VIII: He was able to hear and had no nystagmus. IX: The palate moved symmetrically on phonation. X: He had no hoarseness of voice. XI: The sternocleidomastoids and trapezii functioned normally. XII: The tongue was in the midline without any fasciculations or atrophy. MOTOR SYSTEM: The tone was increased in all four extremities with gegenhalten. Examination of muscle mass revealed some generalized muscle wasting. Examination of power was exceedingly difficult to perform because of varying degrees of cooperation. However, he did have a left greater than right paresis involving the lower extremities more than the upper extremities. SENSORY EXAMINATION: He responded appropriately to deep pain. He was unable to cooperate for other sensory modalities. REFLEXES: Trace+ and bilaterally symmetrical at the biceps, triceps, brachioradialis, and knees and 0 at both ankles. The plantar response was extensor on the left and flexor on the right. COORDINATION, STANCE & GAIT: Could not be tested. Impression/Recommendations Diagnostic Impression 1. Mr. 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 He was hospitalized on 04/13/2017 for breakthrough seizures in spite of being on Keppra 500 mg twice a day. 2. He has been seizure free. However he continues to be cognitively impoverished and motorically challenged. He is also very drowsy now. 3. On neurological examination, at this time, he is drowsy but can be aroused. He is significantly aphasic making further mental status testing quite impossible. He also has a dysarthria, left greater than right VII central facial paresis, left greater than right lower extremity more than upper extremity quadriparesis, globally diminished deep tendon reflexes, and an extensor plantar response on the left. 4. The CT scan of the brain without contrast reveals old right basal ganglion infarcts and in addition, bilateral frontal deep white matter disease, but no definite acute pathology. 5. The MRI of the brain done on 04/14/17 revealed an old right basal ganglion infarct, bilateral frontal deep white matter disease, significant atrophy, but no definite acute pathology. 6. The EEG done on 04/14/17 revealed a moderate encephalopathy and bilateral frontal dysfunction but no inter-ictal or ictal phenomena. 7. Laboratory data revealed a relatively normal chemistry panel, a hemoglobin of 13.0 and an INR of 1.0. The chemistry panel revealed an elevated blood sugar at 120 fasting. The toxicology screen, was positive for benzodiazepines and cannabinols, and urinalysis revealed 5-10 red blood cells, 0-2 white blood cells, and negative leukocyte esterase. 8. The patient's history, neurological examination, laboratory data, EEG and imaging studies are most compatible with breakthrough seizures in this patient, who does have an underlying history of cerebrovascular disease and seizures. The breakthrough seizures could be due to intoxication with cannabinoids, or a subtherapeutic Keppra level. Recommendations 1. Continue present management. 2. Continue Keppra 750 mg q.12 h by whatever route is convenient. 3. Increase activity as tolerated. 4. Observe closely. Sarabjit Byrne M.D., M.S.P.H. SARABJIT BYRNE Apr 16, 2017 12:55
--- NOTE | 2017-04-16 13:24 | General Progress Note ---
Assessment/Plan Problem List: (1) Seizure ICD Codes: R56.9 - Unspecified convulsions SNOMED: 83982750 (2) Tachycardia ICD Codes: R00.0 - Tachycardia, unspecified SNOMED: 1968101 (3) CVA (cerebrovascular accident) ICD Codes: I63.9 - Cerebral infarction, unspecified SNOMED: 797918373 (4) Dementia ICD Codes: F03.90 - Unspecified dementia without behavioral disturbance SNOMED: 09203376 (5) Depression ICD Codes: F32.9 - Major depressive disorder, single episode, unspecified SNOMED: 66958612 (6) BPH (benign prostatic hyperplasia) ICD Codes: N40.0 - Benign prostatic hyperplasia without lower urinary tract symptoms SNOMED: 217729065 (7) H/o DVT Assessment/Plan - appreciate neurology recs & mgt - c/w keppra 750mg BID (consider changeing to less sedating AED if confusion not improved) - dd, bl le dopplers - ekg, trop q6h x 3 - ativan prn - neuro checks - trend chem, cbc - c/w other mgt as outlined above - supportive care I spent 38 min on this case and 22 min on counseling and care coordination including discussion w/ family & RN at bedside and Neurology program consultant. time of this note may not reflect the time of the encounter. Subjective Date patient seen: Apr 16, 2017 ROS Limited/Unobtainable: Yes Allergies: Coded Allergies: No Known Allergies (Unverified , 04/13/17) Subjective No acute events Continues to be confused Degree of AMS not c/w post ictal confusion Persistently tachycardic Objective Last 24 Hour Vital Signs Date Time Temp Pulse Resp B/P (MAP) Pulse Ox O2 Delivery O2 Flow Rate FiO2 04/16/17 12:00 97.9 106 19 110/54 95 04/16/17 08:00 97.7 115 18 134/83 94 04/16/17 04:00 108 04/16/17 04:00 97.9 112 21 126/75 96 Room Air 04/16/17 00:00 98.1 117 18 153/85 94 Room Air 04/16/17 00:00 112 04/15/17 20:00 98.8 119 19 137/75 92 Room Air 04/15/17 20:00 123 04/15/17 16:00 99.7 121 18 133/74 93 04/15/17 16:00 109 Laboratory Tests 04/16/17 05:52: Prothrombin Time 10.3, Prothromb Time International Ratio 1.0 Height (Feet): 5 Height (Inches): 11.00 Weight (Pounds): 190 Objective General: alert, cooperative, no distress, appears stated age, confused Head: normocephalic, without obvious abnormality, atraumatic Eyes: conjunctivae/corneas clear. PERRL, EOM's intact Throat: lips, mucosa, and tongue normal. MMM Neck: supple, symmetrical, trachea midline, and no JVD Lungs: clear to auscultation bilaterally Heart: regular rate and rhythm, S1, S2 normal, no murmur, click, rub or gallop Abdomen: soft, non-tender, non-distended, bowel sounds normal; no masses or organomegaly Extremities: extremities normal, atraumatic, no cyanosis or edema Pulses: 2+ and symmetric Skin: skin color, texture, turgor normal; no rashes or lesions Neurologic: +dysarthria and aphasia, L>R paresis w/ LE worse than UE Omero De Santiago MD Apr 16, 2017 13:24
[2017-04-16 15:23] LABS: BASOPHILS % (AUTO) 1.1 % (0.0-2.0); EOSINOPHILS % (AUTO) 0.4 % (0.0-3.0); LYMPHOCYTES % (AUTO) 19.3 % (20.0-45.0); MEAN CORPUSCULAR HEMOGLOBIN 30.4 PG (27.0-31.0); MEAN CORPUSCULAR HGB CONC 33.2 G/DL (32.0-36.0); MEAN CORPUSCULAR VOLUME 92 FL (80-99); MONOCYTES % (AUTO) 11.2 % (1.0-10.0); PLATELET COUNT 164 K/UL (150-450); RED BLOOD COUNT 4.74 M/UL (4.70-6.10); RED CELL DISTRIBUTION WIDTH 12.3 % (11.6-14.8); WHITE BLOOD COUNT 9.5 K/UL (4.8-10.8)
[2017-04-16 15:36] LABS: ALANINE AMINOTRANSFERASE 21 U/L (12-78); ALBUMIN/GLOBULIN RATIO 0.9 (1.0-2.7); ANION GAP 9 mmol/L (5-15); ASPARTATE AMINO TRANSFERASE 25 U/L (15-37); CALCIUM 8.6 MG/DL (8.5-10.1); CARBON DIOXIDE 29 MMOL/L (21-32); CHLORIDE 106 MMOL/L (98-107); CREATININE 0.8 MG/DL (0.55-1.30); POTASSIUM 3.7 MMOL/L (3.5-5.1); SODIUM 144 MMOL/L (136-145); TOTAL PROTEIN 6.9 G/DL (6.4-8.2)
[2017-04-16 16:00] VITALS: BP 120/74
[2017-04-16] MEDS ORDERED: D5 1/2NS 1000ml IV ONE ×2 (16:23→16:50)
[2017-04-16] MEDS ORDERED: Tubing IV Secondary IV ONE ×2 (16:23→16:50)
[2017-04-16] MEDS ORDERED: Warfarin Sodium 4mg PO ONE (17:00)
[2017-04-16 20:00] VITALS: BP 124/65
[2017-04-17] VITALS: BP 115/64
[2017-04-17 04:00] VITALS: BP 129/77
[2017-04-17 06:34] LABS: INR 1.3 (0.9-1.1); PROTHROMBIN TIME 13.4 SEC (9.30-11.50)
[2017-04-17] MEDS: LORazepam Inj 2mg/ml 1ml IV PRN (06:49)
[2017-04-17 08:00] VITALS: BP 112/56
[2017-04-17] MEDS: D5 1/2NS 1,000 ML IV SCH ×2 (08:47→21:51)
[2017-04-17] MEDS: levETIRAcetam 750 MG in NS 110 ML IV SCH ×2 (08:48→21:50)
[2017-04-17] MEDS: Tamsulosin 0.4mg cap ORAL SCH ×3 (08:48→17:11)
--- NOTE | 2017-04-17 10:10 | Cardiology Report ---
APPROVED REPORT EXAM: Two-dimensional and M-mode echocardiogram with Doppler and color Doppler. INDICATION Altered LOC M-Mode DIMENSIONS IVSd0.9 (0.7-1.1cm)Left Atrium (MM)3.3 (1.6-4.0cm) LVDd4.7 (3.5-5.6cm)Aortic Root3.0 (2.0-3.7cm) PWd0.9 (0.7-1.1cm)Aortic Cusp Exc.1.6 (1.5-2.0cm) LVDs3.7 (2.5-4.0cm) PWs1.5 cm Normal left ventricular chamber size. Left ventricular ejection fraction estimated to be 55%. No evidence of left ventricular hypertrophy. Anterior Echo-free space, may be due to pericardial fat or effusion. Mild left atrial enlargement. Right cardiac chamber sizes are within normal limits. Moderate focal aortic valve sclerosis with adequate cusp excursion. Moderate thickened mitral valve leaflets with normal excursion. Mild mild mitral annulus and aortic root calcification. Pulmonic valve not well visualized. Normal tricuspid valve structure. IVC is normal in size and collapsible with respiration. A color flow and spectral Doppler study was performed and revealed: No aortic regurgitation. Trace mitral regurgitation. Left ventricular diastolic function could not be determined due to A-Fib. Mild tricuspid regurgitation. Tricuspid systolic velocities suggests peak right ventricular systolic pressure of 45 mmHg, consistent with moderate pulmonary hypertension. No pulmonic regurgitation present.
--- NOTE | 2017-04-17 10:59 | Cardiac Electrophysiology PN ---
Subjective Subjective Dictated [id number] Objective Last 24 Hour Vital Signs Date Time Temp Pulse Resp B/P (MAP) Pulse Ox O2 Delivery O2 Flow Rate FiO2 04/17/17 08:00 98.7 69 19 112/56 98 04/17/17 04:00 97.9 70 20 129/77 94 Room Air 04/17/17 04:00 110 04/17/17 00:00 98.2 61 19 115/64 91 Room Air 04/17/17 00:00 117 04/16/17 20:00 121 04/16/17 20:00 97.9 115 18 124/65 93 Room Air 04/16/17 16:00 117 04/16/17 16:00 98.1 106 18 120/74 92 04/16/17 12:00 106 04/16/17 12:00 97.9 106 19 110/54 95 Laboratory Tests Test 04/16/17 14:45 04/16/17 19:19 04/17/17 01:35 04/17/17 05:05 White Blood Count 9.5 K/UL (4.8-10.8) Red Blood Count 4.74 M/UL (4.70-6.10) Hemoglobin 14.4 G/DL (14.2-18.0) Hematocrit 43.4 % (42.0-52.0) Mean Corpuscular Volume 92 FL (80-99) Mean Corpuscular Hemoglobin 30.4 PG (27.0-31.0) Mean Corpuscular Hemoglobin Concent 33.2 G/DL (32.0-36.0) Red Cell Distribution Width 12.3 % (11.6-14.8) Platelet Count 164 K/UL (150-450) Mean Platelet Volume 6.0 FL (6.5-10.1) L Neutrophils (%) (Auto) 68.0 % (45.0-75.0) Lymphocytes (%) (Auto) 19.3 % (20.0-45.0) L Monocytes (%) (Auto) 11.2 % (1.0-10.0) H Eosinophils (%) (Auto) 0.4 % (0.0-3.0) Basophils (%) (Auto) 1.1 % (0.0-2.0) D-Dimer 2.25 mg/L FEU (0.00-0.49) H Sodium Level 144 MMOL/L (136-145) Potassium Level 3.7 MMOL/L (3.5-5.1) Chloride Level 106 MMOL/L (98-107) Carbon Dioxide Level 29 MMOL/L (21-32) Anion Gap 9 mmol/L (5-15) Blood Urea Nitrogen 10 mg/dL (7-18) Creatinine 0.8 MG/DL (0.55-1.30) Estimat Glomerular Filtration Rate mL/min (>60) Glucose Level 97 MG/DL (74-106) Calcium Level 8.6 MG/DL (8.5-10.1) Total Bilirubin 0.6 MG/DL (0.2-1.0) Aspartate Amino Transf (AST/SGOT) 25 U/L (15-37) Alanine Aminotransferase (ALT/SGPT) 21 U/L (12-78) Alkaline Phosphatase 74 U/L (46-116) Troponin I 0.020 ng/mL (0.000-0.056) 0.000 ng/mL (0.000-0.056) 0.030 ng/mL (0.000-0.056) Total Protein 6.9 G/DL (6.4-8.2) Albumin 3.3 G/DL (3.4-5.0) L Globulin 3.6 g/dL Albumin/Globulin Ratio 0.9 (1.0-2.7) L Prothrombin Time 13.4 SEC (9.30-11.50) H Prothromb Time International Ratio 1.3 (0.9-1.1) H МАРИНА LEE Apr 17, 2017 10:59
[2017-04-17 12:00] VITALS: BP 131/77
--- NOTE | 2017-04-17 12:10 | General Progress Note ---
Assessment/Plan Problem List: (1) Acute encephalopathy Assessment & Plan: unclear etiology, possible post-ictal state though degree of confusion may not correlate vs medication/drug induced ICD Codes: G93.40 - Encephalopathy, unspecified SNOMED: 4796120 (2) Epileptic seizure, generalized ICD Codes: G40.309 - Generalized idiopathic epilepsy and epileptic syndromes, not intractable, without status epilepticus SNOMED: 73252034 (3) Seizure disorder ICD Codes: G40.909 - Epilepsy, unspecified, not intractable, without status epilepticus SNOMED: 931998180 (4) CVA (cerebrovascular accident) ICD Codes: I63.9 - Cerebral infarction, unspecified SNOMED: 103274862 (5) Dementia ICD Codes: F03.90 - Unspecified dementia without behavioral disturbance SNOMED: 74678759 (6) Depression ICD Codes: F32.9 - Major depressive disorder, single episode, unspecified SNOMED: 74169097 (7) BPH (benign prostatic hyperplasia) ICD Codes: N40.0 - Benign prostatic hyperplasia without lower urinary tract symptoms SNOMED: 451756045 (8) H/o DVT Assessment & Plan: on coumadin Status: stable Assessment/Plan - appreciate neurology recs & mgt - c/w keppra 750mg BID - appreciate cardiology consult - trop neg x 3, TTE reviewed and EF 55% - neuro checks - trend chem, cbc - c/w other mgtmt as outlined above - supportive care - PT/OT - CM consult for d/c plan to SNF/rehab I spent 37 min on this case and 22 min on counseling and care coordination including discussion w/ family & RN at bedside and Neurology water resource consultant. D/w pt' s son extensively regarding plan of care Time of this note may not reflect the time of the encounter. Subjective Date patient seen: Apr 17, 2017 Time patient seen: 12:10 ROS Limited/Unobtainable: Yes Allergies: Coded Allergies: No Known Allergies (Unverified , 04/13/17) Subjective No acute o/n events Pt more awake, alert, speech slightly more clear but cont to be confused. D/w pt 's son and friend at bedside. Son states at baseline pt A&Ox3 and ambulatory. Pt responds "fine" when asked how he is ROM limited 2/2 AMS Objective Last 24 Hour Vital Signs Date Time Temp Pulse Resp B/P (MAP) Pulse Ox O2 Delivery O2 Flow Rate FiO2 04/17/17 08:00 98.7 69 19 112/56 98 04/17/17 04:00 97.9 70 20 129/77 94 Room Air 04/17/17 04:00 110 04/17/17 00:00 98.2 61 19 115/64 91 Room Air 04/17/17 00:00 117 04/16/17 20:00 121 04/16/17 20:00 97.9 115 18 124/65 93 Room Air 04/16/17 16:00 117 04/16/17 16:00 98.1 106 18 120/74 92 Laboratory Tests 04/16/17 14:45: White Blood Count 9.5, Red Blood Count 4.74, Hemoglobin 14.4, Hematocrit 43.4, Mean Corpuscular Volume 92, Mean Corpuscular Hemoglobin 30.4, Mean Corpuscular Hemoglobin Concent 33.2, Red Cell Distribution Width 12.3, Platelet Count 164, Mean Platelet Volume 6.0L, Neutrophils (%) (Auto) 68.0, Lymphocytes (%) (Auto) 19.3L, Monocytes (%) (Auto) 11.2H, Eosinophils (%) (Auto) 0.4, Basophils (%) ( Auto) 1.1, D-Dimer 2.25H, Sodium Level 144, Potassium Level 3.7, Chloride Level 106, Carbon Dioxide Level 29, Anion Gap 9, Blood Urea Nitrogen 10, Creatinine 0.8, Estimat Glomerular Filtration Rate , Glucose Level 97, Calcium Level 8.6, Total Bilirubin 0.6, Aspartate Amino Transf (AST/SGOT) 25, Alanine Aminotransferase (ALT/SGPT) 21, Alkaline Phosphatase 74, Troponin I 0.020, Total Protein 6.9, Albumin 3.3L, Globulin 3.6, Albumin/Globulin Ratio 0.9L 04/16/17 19:19: Troponin I 0.000 04/17/17 01:35: Troponin I 0.030 04/17/17 05:05: Prothrombin Time 13.4H, Prothromb Time International Ratio 1.3H Height (Feet): 5 Height (Inches): 11.00 Weight (Pounds): 190 Objective General: alert, cooperative, no distress, appears stated age, confused Head: normocephalic, without obvious abnormality, atraumatic Eyes: conjunctivae/corneas clear. PERRL, EOM's intact Throat: lips, mucosa, and tongue normal. MMM Neck: supple, symmetrical, trachea midline, and no JVD Lungs: clear to auscultation bilaterally Heart: regular rate and rhythm, S1, S2 normal, no murmur, click, rub or gallop Abdomen: soft, non-tender, non-distended, bowel sounds normal; no masses or organomegaly Extremities: extremities normal, atraumatic, no cyanosis or edema Pulses: 2+ and symmetric Skin: skin color, texture, turgor normal; no rashes or lesions Neurologic: +dysarthria and aphasia, L>R paresis w/ LE worse than UE Maryan Mcqueen M.D. Apr 17, 2017 12:10
--- NOTE | 2017-04-17 14:07 | Neurology Progress Note ---
Interim History Interim History Interim History Mr. Carrillo says he feels "better" in [facility]. He is less sleepy today - but still not completely alert. He can communicate better in [facility]. He has been seizure free. He continues to be cognitively impoverished. He continues to be generally weak. He denies any new neurologic symptoms. Review of Systems Neuro Review of Systems Unable to obtain. Objective Physical Exam Last Vital Signs Date Time Temp Pulse Resp B/P (MAP) Pulse Ox O2 Delivery O2 Flow Rate FiO2 04/17/17 12:00 97.7 90 19 131/77 97 04/17/17 04:00 Room Air 04/14/17 16:00 3.0 Laboratory Tests Test 04/16/17 14:45 04/16/17 19:19 04/17/17 01:35 04/17/17 05:05 White Blood Count 9.5 K/UL (4.8-10.8) Red Blood Count 4.74 M/UL (4.70-6.10) Hemoglobin 14.4 G/DL (14.2-18.0) Hematocrit 43.4 % (42.0-52.0) Mean Corpuscular Volume 92 FL (80-99) Mean Corpuscular Hemoglobin 30.4 PG (27.0-31.0) Mean Corpuscular Hemoglobin Concent 33.2 G/DL (32.0-36.0) Red Cell Distribution Width 12.3 % (11.6-14.8) Platelet Count 164 K/UL (150-450) Mean Platelet Volume 6.0 FL (6.5-10.1) L Neutrophils (%) (Auto) 68.0 % (45.0-75.0) Lymphocytes (%) (Auto) 19.3 % (20.0-45.0) L Monocytes (%) (Auto) 11.2 % (1.0-10.0) H Eosinophils (%) (Auto) 0.4 % (0.0-3.0) Basophils (%) (Auto) 1.1 % (0.0-2.0) D-Dimer 2.25 mg/L FEU (0.00-0.49) H Sodium Level 144 MMOL/L (136-145) Potassium Level 3.7 MMOL/L (3.5-5.1) Chloride Level 106 MMOL/L (98-107) Carbon Dioxide Level 29 MMOL/L (21-32) Anion Gap 9 mmol/L (5-15) Blood Urea Nitrogen 10 mg/dL (7-18) Creatinine 0.8 MG/DL (0.55-1.30) Estimat Glomerular Filtration Rate mL/min (>60) Glucose Level 97 MG/DL (74-106) Calcium Level 8.6 MG/DL (8.5-10.1) Total Bilirubin 0.6 MG/DL (0.2-1.0) Aspartate Amino Transf (AST/SGOT) 25 U/L (15-37) Alanine Aminotransferase (ALT/SGPT) 21 U/L (12-78) Alkaline Phosphatase 74 U/L (46-116) Troponin I 0.020 ng/mL (0.000-0.056) 0.000 ng/mL (0.000-0.056) 0.030 ng/mL (0.000-0.056) Total Protein 6.9 G/DL (6.4-8.2) Albumin 3.3 G/DL (3.4-5.0) L Globulin 3.6 g/dL Albumin/Globulin Ratio 0.9 (1.0-2.7) L Prothrombin Time 13.4 SEC (9.30-11.50) H Prothromb Time International Ratio 1.3 (0.9-1.1) H Neurologic Exam Objective PHYSICAL EXAMINATION: GENERAL: He is a well-developed, well-nourished gentleman, lying in bed, in no acute distress. HEAD: Normocephalic and atraumatic. EENT: Examination benign. NECK: No neck rigidity was observed. NEUROLOGICAL EXAMINATION: MENTAL STATUS EXAMINATION: He was awake but not completely alert. He was oriented to self only. He could not cooperate for further mental status examination. SPEECH: He had mild dysarthria. LANGUAGE: He was able to comprehend and express himself better. CRANIAL NERVE EXAMINATION: II: He was able to count fingers, and did blink to threat in all lomeli. III, IV & : The external ocular movements were full and the pupils 3 mm in diameter, equal, round, regular, and reactive to light. V: He had normal facial sensations and the temporales, masseters, and pterygoids functioned normally. VII: He had left greater than right VII central facial paresis. VIII: He was able to hear and had no nystagmus. IX: The palate moved symmetrically on phonation. X: He had no hoarseness of voice. XI: The sternocleidomastoids and trapezii functioned normally. XII: The tongue was in the midline without any fasciculations or atrophy. MOTOR SYSTEM: The tone was increased in all four extremities with gegenhalten. Examination of muscle mass revealed some generalized muscle wasting. Examination of power was exceedingly difficult to perform because of varying degrees of cooperation. However, he did have a left greater than right paresis involving the lower extremities more than the upper extremities. SENSORY EXAMINATION: He responded appropriately to deep pain. He was unable to cooperate for other sensory modalities. REFLEXES: Trace+ and bilaterally symmetrical at the biceps, triceps, brachioradialis, and knees and 0 at both ankles. The plantar response was extensor on the left and flexor on the right. COORDINATION: Could not be tested. STANCE & GAIT: He stood and walked with support on both sides. He had a left > right paraparetic gait. Impression/Recommendations Diagnostic Impression 1. Mr. 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 He was hospitalized on 04/13/2017 for breakthrough seizures in spite of being on Keppra 500 mg twice a day. 2. He has been seizure free. However he continues to be cognitively impoverished and motorically challenged. He is less drowsy today. 3. On neurological examination, at this time, he is awake but not completely alert. He is still aphasic but better than for the last few days. He also has a dysarthria, left greater than right VII central facial paresis, left greater than right lower extremity more than upper extremity quadriparesis, globally diminished deep tendon reflexes, and an extensor plantar response on the left. 4. The CT scan of the brain without contrast reveals old right basal ganglion infarcts and in addition, bilateral frontal deep white matter disease, but no definite acute pathology. 5. The MRI of the brain done on 04/14/17 revealed an old right basal ganglion infarct, bilateral frontal deep white matter disease, significant atrophy, but no definite acute pathology. 6. The EEG done on 04/14/17 revealed a moderate encephalopathy and bilateral frontal dysfunction but no inter-ictal or ictal phenomena. 7. Laboratory data revealed a relatively normal chemistry panel, a hemoglobin of 13.0 and an INR of 1.0. The chemistry panel revealed an elevated blood sugar at 120 fasting. The toxicology screen, was positive for benzodiazepines and cannabinols, and urinalysis revealed 5-10 red blood cells, 0-2 white blood cells, and negative leukocyte esterase. 8. The patient's history, neurological examination, laboratory data, EEG and imaging studies are most compatible with breakthrough seizures in this patient, who does have an underlying history of cerebrovascular disease and seizures. The breakthrough seizures could be due to intoxication with cannabinoids, or a subtherapeutic Keppra level. Recommendations 1. Continue present management. 2. Continue Keppra 750 mg q.12 h by whatever route is convenient. 3. Increase activity as tolerated. 4. Observe closely. Sarabjit Byrne M.D., M.S.P.SARABJIT PECK Apr 17, 2017 14:07
[2017-04-17 16:00] VITALS: BP 130/71
[2017-04-17] MEDS ORDERED: Warfarin Sodium 3mg ORAL ONE (17:00)
[2017-04-17] MEDS: Docusate 100mg cap ORAL SCH (17:11)
--- NOTE | 2017-04-17 19:23 | Cardiology Report ---
APPROVED REPORT EKG Measurement Heart [id number] VT [id number] [id number] Sinus tachycardia with occasional premature ventricular complexes Otherwise normal ECG
[2017-04-17 20:00] VITALS: BP 130/76
--- NOTE | 2017-04-17 22:00 | Consultation ---
DATE OF CONSULTATION: 04/17/2017 CARDIOLOGY CONSULTATION CONSULTING PHYSICIAN: Dre May M.D. REFERRING PHYSICIAN: Maria Luz Darden M.D. REASON FOR CONSULTATION: Management of congestive heart failure and tachycardia. HISTORY OF PRESENT ILLNESS: 2The patient is an 87-year-old gentleman with history of hypertension, depression, history of CVA with prior stroke, history of seizure disorder, on chronic anticoagulation with warfarin for DVTs. The patient was admitted on 04/13/2017 with breakthrough seizures despite being on Keppra 500 mg twice daily. His urine toxicology screen also, however, was positive for cannabinols and benzodiazepine. The patient has had episodes of tachycardia, heart rates up to 120s to 130. It was mostly sinus tachycardia. He also underwent an echocardiogram that showed ejection fraction of only 40%. A Cardiology consultation was obtained for further evaluation and management. PAST MEDICAL HISTORY: As mentioned above. In addition, the patient has had CVA. MEDICATIONS: Per reconciliation. SOCIAL HISTORY: He lives at home with a caregiver. Does not smoke or drink alcohol. FAMILY HISTORY: Noncontributory. REVIEW OF SYSTEMS: Cannot be obtained as the patient just received Ativan in view of his agitation. PHYSICAL EXAMINATION: VITAL SIGNS: Blood pressure is 112/56, pulse rate 70, respirations 18, and he is afebrile. HEAD AND NECK: No JVD. LUNGS: Clear. CARDIOVASCULAR: Regular S1 and S2 with no gallop. ABDOMEN: Soft. EXTREMITIES: No pitting edema. LABORATORY AND DIAGNOSTIC DATA: His EKG showed sinus tachycardia with occasional PVCs, rate of 120. Echocardiogram showed ejection fraction of 40% with no significant valvular pathology. His labs show white count of 9.5, hemoglobin 14.4, hematocrit of 43, and platelet count is 164,000. Sodium 144, potassium 3.7, BUN of 10, and creatinine 0.8. Troponins are negative. ASSESSMENT AND PLAN: 1. Tachycardia. It is sinus tachycardia. No evidence of atrial fibrillation. Likely due to the patient's seizures. I will check a thyroid function test as well. 2. Cardiomyopathy with ejection fraction of only 40%. I will start the patient on low-dose Coreg that will be beneficial for the patient's heart rate as well. If the blood pressure stabilizes, then I will add lisinopril to his medical regimen. 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 Currently on Seroquel and Ativan, under management of Dr. Byrne. 4. History of deep venous thrombosis, on Coumadin per pharmacy. Thank you very much, Dr. Darden, for allowing me to participate in the care of this patient. Please do not hesitate to contact me for any questions regarding my evaluation. Dre May M.D. DR: Cindy JOB#: [id number] CC:
[2017-04-18] VITALS: BP 146/72
[2017-04-18] MEDS: LORazepam Inj 2mg/ml 1ml IV PRN (03:39)
[2017-04-18 04:00] VITALS: BP 106/71
[2017-04-18] MEDS ORDERED: KEPPRA750 MG ORAL (06:45)
[2017-04-18] MEDS ORDERED: COREG3.125 MG ORAL (06:46)
[2017-04-18 08:00] VITALS: BP 126/74
[2017-04-18 08:15] LABS: THYROID STIMULATING HORMONE 0.298 uiU/mL (0.358-3.740)
[2017-04-18] MEDS: Docusate 100mg cap ORAL SCH ×2 (09:25→17:07)
[2017-04-18] MEDS: Tamsulosin 0.4mg cap ORAL SCH ×2 (09:25→17:07)
[2017-04-18] MEDS: levETIRAcetam 750 MG in NS 110 ML IV SCH (09:25)
[2017-04-18 11:00] LABS: INR 1.9 (0.9-1.1); PROTHROMBIN TIME 19.5 SEC (9.30-11.50)
[2017-04-18] MEDS: D5 1/2NS 1,000 ML IV SCH (11:40)
[2017-04-18 12:00] VITALS: BP 103/60
[2017-04-18] MEDS ORDERED: Flu Vaccine Quadrivalent 0.5ml IM ONE (13:00)
--- NOTE | 2017-04-18 15:44 | Cardiac Electrophysiology PN ---
Assessment/Plan Assessment/Plan 1. Sinus tachycardia. No evidence of atrial fibrillation. Likely due to the patient's seizures. 2. Cardiomyopathy with ejection fraction of only 40%. Continue Coreg. Add Lisinopril 2.5 daily. 3. Seizures. Likely due to noncompliance Currently on Seroquel and Ativan, under management of Dr. Byrne. 4. History of deep venous thrombosis, on Coumadin per pharmacy. DW RN Subjective Subjective No arrhythmia reported. child caregiver private home and RN at bedside. Objective Last 24 Hour Vital Signs Date Time Temp Pulse Resp B/P (MAP) Pulse Ox O2 Delivery O2 Flow Rate FiO2 04/18/17 12:00 96 04/18/17 12:00 97.8 100 18 103/60 Room Air 04/18/17 09:26 100 126/74 04/18/17 08:00 96.4 100 19 126/74 Room Air 04/18/17 08:00 107 04/18/17 04:00 105 04/18/17 04:00 96.0 108 22 106/71 94 Room Air 04/18/17 00:00 98.1 108 20 146/72 95 Room Air 04/18/17 00:00 112 04/17/17 21:52 117 130/76 04/17/17 21:00 124 04/17/17 20:00 98.2 117 22 130/76 Room Air 04/17/17 16:00 98.2 84 18 130/71 97 04/17/17 16:00 108 Laboratory Tests Test 04/18/17 06:55 04/18/17 10:40 Thyroid Stimulating Hormone (TSH) 0.298 uiU/mL (0.358-3.740) Free Thyroxine 1.27 NG/DL (0.76-1.46) Prothrombin Time 19.5 SEC (9.30-11.50) H Prothromb Time International Ratio 1.9 (0.9-1.1) H Objective HEAD AND NECK: No JVD. LUNGS: Clear. CARDIOVASCULAR: Regular S1 and S2 with no gallop. ABDOMEN: Soft. EXTREMITIES: No pitting edema. МАРИНА LEE Apr 18, 2017 15:44
[2017-04-18 16:00] VITALS: BP 118/80
[2017-04-18] MEDS ORDERED: COUMADIN3 MG ORAL (16:11)
--- NOTE | 2017-04-18 16:12 | Discharge Instructions ---
Discharge Instructions Discharge Instructions Diet: soft Resume Normal Activity?: Yes Activity: resume normal activities Special Instructions Take Coumadin 3mg this evening and then resume home dose 6mg starting tomorrow. Repeat INR in AM and adjust dose as needed For Congestive Heart Failure Reminder Report to your physician any weight gain of 5 pounds or more in one week. Maryan Mcqueen M.D. Apr 18, 2017 16:12
[2017-04-18] MEDS ORDERED: Warfarin Sodium 3mg ORAL ONE (17:00)
[2017-04-18] MEDS ORDERED: D5 1/2NS 1000ml IV ONE (17:59)
--- NOTE | 2017-04-18 22:04 | Discharge Summary ---
Discharge Summary Hospital Course Date of Admission Apr 13, 2017 at 22:33 Date of Discharge Apr 18, 2017 at 18:00 Admitting Diagnosis recurrent seizures, cva, subtherapeutic anticonvul HPI 87y/o male with pmh of CVA, dementia, depression, seizure d/o, BPH, DVT (on coumadin) who presents with seizures. History limited given pt confused. Per EMS , pt had abt 5 seizures yesterday. He was compliant w/ his seizure med per reports. No reports of f/c, n/v, d/c, chest pain, fSOB. ocal weakness/numbness. No recent travel or sick contacts. Pt was given Versed 5mg IV in field w/ resolution of seizures. In ED, utox positive for cannabis and benzo. Pt had another seizure in ED and was given ativan 2mg IV. Pt then given dilantin 1mg IV. Consultations Neurology, Cardiology Hospital Course Pt was admitted and seen by neurology. He was started on keppra 750mg BID. Pt noted to be altered from baseline which was likely component of post-ictal state. MRI brain showed old R basal ganglia infract and atrophy. EEG showed moderate encephalopathy and b/l frontal dysfunction. PT also seen by cardiology given tachycardia. Troponin neg x 3 and TTE showed normal EF. Pt was seen by PT/OT who recommended SNF. Discharge physical exam: General: alert, cooperative, no distress, appears stated age Head: normocephalic, without obvious abnormality, atraumatic Eyes: conjunctivae/corneas clear. PERRL, EOM's intact Throat: lips, mucosa, and tongue normal. MMM Neck: supple, symmetrical, trachea midline, and no JVD Lungs: clear to auscultation bilaterally Heart: regular rate and rhythm, S1, S2 normal, no murmur, click, rub or gallop Abdomen: soft, non-tender, non-distended, bowel sounds normal; no masses or organomegaly Extremities: extremities normal, atraumatic, no cyanosis or edema Pulses: 2+ and symmetric Skin: skin color, texture, turgor normal; no rashes or lesions Neurologic: grossly normal, no focal deficits Discharge diagnoses: (1) Acute encephalopathy Assessment & Plan: unclear etiology, possible post-ictal state though degree of confusion may not correlate vs medication/drug induced ICD Codes: G93.40 - Encephalopathy, unspecified SNOMED: 3719054 (2) Epileptic seizure, generalized ICD Codes: G40.309 - Generalized idiopathic epilepsy and epileptic syndromes, not intractable, without status epilepticus SNOMED: 15404837 (3) Seizure disorder ICD Codes: G40.909 - Epilepsy, unspecified, not intractable, without status epilepticus SNOMED: 625092757 (4) CVA (cerebrovascular accident) ICD Codes: I63.9 - Cerebral infarction, unspecified SNOMED: 234970685 (5) Dementia ICD Codes: F03.90 - Unspecified dementia without behavioral disturbance SNOMED: 83283300 (6) Depression ICD Codes: F32.9 - Major depressive disorder, single episode, unspecified SNOMED: 93089161 (7) BPH (benign prostatic hyperplasia) ICD Codes: N40.0 - Benign prostatic hyperplasia without lower urinary tract symptoms SNOMED: 677801765 (8) H/o DVT Discharge Medications New Medications: Levetiracetam (Keppra) 750 Mg Tablet 750 MG ORAL BID for 90 Days, TAB Carvedilol (Coreg) 3.125 Mg Tablet 3.125 MG ORAL EVERY 12 HOURS for 90 Days, TAB Warfarin Sod* (Coumadin*) 3 Mg Tablet 3 MG ORAL QPM for 1 Day, TAB Continued Medications: Escitalopram Oxalate* (Lexapro*) 20 Mg Tablet 20 MG ORAL DAILY, TAB Quetiapine Fumarate* (Quetiapine Fumarate*) 50 Mg Tablet 50 MG ORAL DAILY, TAB Tamsulosin Hcl (Tamsulosin Hcl*) 0.4 Mg Cap.er.24h 0.4 MG ORAL BID, CAP Unable to Obtain Medications (Unable To Obtain Meds) 1 Ea Ea Warfarin Sod* (Warfarin Sod*) 1 Mg Tablet 1 MG ORAL DAILY, TAB Warfarin Sod* (Warfarin Sod*) 5 Mg Tablet 5 MG ORAL DAILY, TAB Discontinued Medications: Levetiracetam (Levetiracetam) 500 Mg Tab.er.24h 500 MG ORAL BID, #30 TAB 0 Refills Discharge Condition Upon Discharge: stable Discharge Disposition Patient was discharged to SNF/Subacute Facility(03) Discharge Diagnoses: Discharge Instructions Discharge Instructions Activity: resume normal activities Maryan Mcqueen M.D. Apr 18, 2017 22:04
[2017-04-19] MEDS ORDERED: Lisinopril 2.5mg tab ORAL SCH (09:00)
[2017-04-20 09:22] LABS: VITAMIN D 25-OH TOTAL 25 ng/mL (.)
--- NOTE | 2017-04-20 11:01 | Diagnostic Imaging Report ---
APPROVED REPORT CPT Code: 24096 Present Symptoms Shortness of breath BILATERAL UPPER EXTREMITY VENOUS DUPLEX: Imaging reveals patency of the internal jugular, subclavian, axillary and brachial veins. The cephalic and basilic veins are also patent. Doppler indicates normal spontaneous flow within these venous segments, bilaterally.
--- NOTE | 2017-04-20 11:01 | Diagnostic Imaging Report ---
APPROVED REPORT CPT Code: 46589 Present Symptoms Shortness of breath RIGHT LEG: Venous imaging reveals a patent deep venous system. There is no evidence of thrombus within the femoral, popliteal or tibial segments. The greater saphenous vein is also within normal limits. Doppler indicates normal spontaneous flow within these segments. LEFT LEG: Venous imaging reveals recanalized chronic thrombus in the distal superficial femoral vein and proximal popliteal vein, with collateral vein. Imaging reveals patency of the common femoral, superficial femoral, popliteal and calf veins. The greater saphenous vein is also within normal limits. Doppler indicates normal spontaneous flow within these segments. There is no evidence of acute DVT.
== END 2017-04-18 18:00 | DRG 100 ==
LOC: EDBD 20:09 → EMR 20:30 → 2E 22:33 → EDBEDREQ 23:24
DX: G40.409 Other generalized epilepsy and epileptic syndromes, not intractable, without status epilepticus (principal); G93.40 Encephalopathy, unspecified; G82.50 Quadriplegia, unspecified; I42.9 Cardiomyopathy, unspecified; F03.90 Unspecified dementia, unspecified severity, without behavioral disturbance, psychotic disturbance, mood disturbance, and anxiety; F12.929 Cannabis use, unspecified with intoxication, unspecified; N40.0 Benign prostatic hyperplasia without lower urinary tract symptoms; Z79.01 Long term (current) use of anticoagulants; R00.0 Tachycardia, unspecified; Z66 Do not resuscitate; I69.320 Aphasia following cerebral infarction; Z91.19 Patient's noncompliance with other medical treatment and regimen; Z86.718 Personal history of other venous thrombosis and embolism; F32.9 Major depressive disorder, single episode, unspecified; Z23 Encounter for immunization
CPT/HCPCS: 36415; 70450; 70553; 80048; 80053; 80184; 80185; 80307; 81003; 82306; 82607; 82746; 82962; 83735; 84100; 84439; 84443; 84484; 85025; 85379; 85610; 90630; 92610; 93005; 93306; 93970; 95819; 99285; A9585; J1165